=== PATIENT | female | born 1935 | race Caucasian/White ===

== ENCOUNTER 2017-10-30 21:36 | Observation (INO) | payer MEDICARE, BC ==
[~2017-10-30] VITALS: Ht 167.6 cm; Wt 93.9 kg
[2017-10-30 22:01] LABS: BASOPHILS % 0.6 % (0.0-1.0); EOSINOPHILS # (AUTO) 0.2 (0.0-0.4); EOSINOPHILS % 4.6 % (0.0-6.0); HEMATOCRIT 33.8 % (34.2-44.1); HEMOGLOBIN 11.3 g/dL (12.0-16.0); LYMPHOCYTES # (AUTO) 1.9 (1.0-3.2); LYMPHOCYTES % 36.5 % (18.0-39.1); MEAN CORPUSCULAR HEMOGLOBIN 31.4 pg (28-32); MEAN CORPUSCULAR HGB CONC 33.4 g/dL (31-35); MEAN CORPUSCULAR VOLUME 93.9 fL (81-99); MONOCYTES # (AUTO) 0.4 (0.2-0.8); MONOCYTES % 8.4 % (4.4-11.3); NEUTROPHILS # (AUTO) 2.6 (2.1-6.9); NEUTROPHILS % 49.5 % (38.7-80.0); PLATELET COUNT 236 x10e3/uL (140-360); RED CELL DISTRIBUTION WIDTH 13.2 % (11.7-14.4)
[2017-10-30 22:10] LABS: INR 1.04; PARTIAL THROMBOPLASTIN TIME 33.2 seconds (23.8-35.5); PROTHROMBIN TIME 12.8 seconds (11.9-14.5)
[2017-10-30 22:21] LABS: ALANINE AMINOTRANSFERASE 32 IU/L (0-55); ALBUMIN 4.2 g/dL (3.5-5.0); ALBUMIN/GLOBULIN RATIO 1.3 (0.8-2.0); ALKALINE PHOSPHATASE 77 IU/L (40-150); BLOOD UREA NITROGEN 28 mg/dL (7-26); BUN/CREATININE RATIO 19 (6-25); CALCIUM 10.5 mg/dL (8.4-10.2); CARBON DIOXIDE 26 mmol/L (22-29); CREATINE KINASE 85 IU/L (29-168); EST GLOMERULAR FILTRATION RATE 33 ML/MIN (60-); GLUCOSE 126 mg/dL (74-118)
[2017-10-30 23:17] LABS: POTASSIUM 3.9 mmol/L (3.5-5.1); SODIUM 142 mmol/L (136-145)
[2017-10-30 23:18] LABS: ANION GAP 15.9 mmol/L (8-16); CHLORIDE 104 mmol/L (98-107)
--- NOTE | 2017-10-30 23:40 | Diagnostic Imaging Report ---
History:TIA Comparison studies:None Technique: Axial images were obtained from the skull base to the vertex. Coronal and sagittal images reconstructed from the axial data. Intravenous contrast: None Dose modulation, iterative reconstruction, and/or weight based adjustment of the mA/kV was utilized to reduce the radiation dose to as low as reasonably achievable. Findings: Scalp/skull: No abnormalities. Extra-axial spaces: No masses. No fluid collections. Brain sulci: Mildly prominent. Ventricles: Mild compensatory dilatation. No hydrocephalus. Parenchyma: Small hypodensities in the supratentorial white matter are small vessel ischemic changes. No masses, hemorrhage, acute or chronic cortical vascular insults. Sellar/suprasellar region: No abnormalities. Craniocervical junction: Patent foramen magnum. No Chiari one malformation. Incidental findings: Atherosclerotic calcifications in the carotid siphons . Impression: No acute abnormalities. Chronic findings: 1. Mild generalized volume loss. 2. Mild supratentorial white matter small vessel ischemic changes. Signed by: DR David Bray M.D. on 10/30/2017 10:52 PM
--- NOTE | 2017-10-30 23:41 | Diagnostic Imaging Report ---
CHEST SINGLE (PORTABLE), 10/30/2017 9:37 PM Technique: CHEST SINGLE (PORTABLE) Comparison: None available. Clinical history: TIA Findings: Prominent cardiomediastinal silhouette likely related to portable technique. No consolidation or edema. No effusion or pneumothorax. Calcified right upper lung granulomas. Impression: 1. Lines/Tubes: None 2. No acute abnormality. Signed by: Dr Alicia Espinal MD on 10/30/2017 11:11 PM
[2017-10-30] MEDS ORDERED: ASPIRIN 81 MG CHEW TAB PO STA (23:50)
[2017-10-31] VITALS (9 sets, daily range): BP systolic 129–186; BP diastolic 60–77
[2017-10-31] MEDS ORDERED: SODIUM CHLORIDE FLUSH 10 ML SYR INJ PRN
[2017-10-31] MEDS ORDERED: ONDANSETRON HCL INJ 2 MG/ML VIAL IV PRN
[2017-10-31] MEDS ORDERED: ASPIRIN 81 MG CHEW TAB PO ONE
[2017-10-31] MEDS ORDERED: LOSARTAN POTASS50 MG PO (00:35)
[2017-10-31] MEDS ORDERED: SIMVASTATIN40 MG PO (00:35)
[2017-10-31] MEDS ORDERED: SYNTHROID75 MCG PO (00:35)
[2017-10-31] MEDS ORDERED: CARVEDILOL3.125 MG PO (00:35)
[2017-10-31] MEDS ORDERED: ACETAMINOPHEN 325 MG TAB PO PRN (00:45)
[2017-10-31] MEDS ORDERED: DIAZEPAM5 MG PO (01:22)
[2017-10-31] MEDS ORDERED: DIAZEPAM 5 MG TAB PO PRN (02:00)
[2017-10-31 02:37] LABS: BILIRUBIN,URINE NEGATIVE (NEGATIVE); CLARITY,URINE CLEAR (CLEAR); COLOR,URINE YELLOW (YELLOW); KETONES,URINE NEGATIVE (NEGATIVE); LEUKOCYTE ESTERASE ,URINE 1+ (NEGATIVE); NITRITE,URINE NEGATIVE (NEGATIVE); PROTEIN,URINE DIPSTICK NEGATIVE (NEGATIVE); URINE UROBILINOGEN 0.2 mg/dL (0.2 - 1)
[2017-10-31 02:45] LABS: BACTERIA,URINE RARE /HPF; EPITHELIAL CELLS,URINE RARE /LPF; RBC,URINE 0-5 /HPF (0-5); TRANSITIONAL EPI CELLS,URINE FEW
[2017-10-31 08:16] LABS: CREATINE KINASE 70 IU/L (29-168)
[2017-10-31] MEDS ORDERED: SIMVASTATIN 40 MG TAB PO SCH ×2 (09:00→21:00)
[2017-10-31] MEDS ORDERED: NON-FORMULARY MEDICATION (Losartan Potassium 50 MG) PO SCH (09:00)
[2017-10-31] MEDS ORDERED: LOSARTAN POTASSIUM 25 MG TAB PO SCH ×2 (09:00→21:00)
[2017-10-31] MEDS ORDERED: CARVEDILOL 3.125 MG TAB PO SCH (09:00)
[2017-10-31] MEDS ORDERED: LEVOTHYROXINE SODIUM 75 MCG TAB PO SCH (09:00)
[2017-10-31] MEDS: ASPIRIN 81 MG ENTERIC COATED PO SCH (11:30)
--- NOTE | 2017-10-31 12:23 | History and Physical ---
Ms. Glass is a charming, 82-year-old woman who presented to the emergency room overnight with a complaint of inability to speak. HISTORY OF PRESENT ILLNESS: The patient reports she lives with her [id number] and that evening while visiting found that, wanting to talk, she could only make mumbling noises for about 15 minutes and then the ability to speak returned. The patient denies any previous similar episodes. Denies any chest pain or palpitations. PAST MEDICAL HISTORY: Significant for hypertension and hyperlipidemia. She has only been in the hospital once for a hysterectomy 61 years ago. MEDICATIONS: She uses a medical regimen of: 1. Losartan 50 mg daily. 2. Carvedilol 3.125 twice a day. 3. Levothyroxine 75 mcg daily. 4. Simvastatin 40 mg daily. 5. Diazepam 5 mg at bedtime. 6. Iron sulfate. FAMILY HISTORY: She reports that her mother, Regine Arellano, lived to be 96 years of age. PERSONAL AND SOCIAL HISTORY: She does not smoke or drink and lives with family. REVIEW OF SYSTEMS: Cardiac: She has had no chest pain or palpitations. PHYSICAL EXAMINATION GENERAL: Examination at this time shows a pleasant, obese woman who is alert, responsive and fluent. VITAL SIGNS: Blood pressure 120/60. Afebrile. Pulse 66. HEENT: Unremarkable. NECK: No jugular venous distention. No bruits. THORAX: Heart sounds S1, S2 are equal. No murmurs. Lungs are clear. ABDOMEN: Protuberant. Normal bowel sounds. EXTREMITIES: No cyanosis, clubbing or edema. LABS: CAT scan of head shows some volume loss but no focal defects. BUN 28, creatinine 1.5. Glucose 126. White count 5.3, hemoglobin 11.3. Coags are normal. Chest x-ray is unremarkable. ASSESSMENT 1. Transient ischemic attack, resolved. 2. Hypertension. 3. Hyperlipidemia. 4. Hyperglycemia. PLAN: Will monitor and add aspirin to her regimen. Await MRI of the head. Check echo and carotid Doppler scan. Further management based on clinical course. Job#: [id number] cc:Prabhu SMALL M.D.
--- NOTE | 2017-10-31 14:28 | Diagnostic Imaging Report ---
Examination: MRI BRAIN WITHOUT CONTRAST History: Loss of speech and body movement. Weakness. Impaired speech for 15 to 20 minutes. Comparison studies: Head CT performed October 30, 2017. Technique: Sagittal T2; axial DWI, FLAIR, GRE or SWI, T1, Coronal FLAIR. Intravenous contrast: None Findings: Scalp: No abnormal signal. No masses. Bone marrow: Normal in signal intensity. Brain volume: Moderate volume loss. Ventricles: Ex vacuo dilatation. No hydrocephalus. Extra-axial spaces: No abnormalities. Parenchyma: There are scattered punctate areas of T2/FLAIR hyperintensity in the periventricular and subcortical white matter, nonspecific. No masses, hemorrhage, acute or chronic vascular insults. Suprasellar and sellar region: No abnormalities. Craniocervical junction: No abnormalities. The foramen magnum is patent. No Chiari malformations. Vessels: Normal flow-voids in the arteries and sinuses. Additional findings:None. IMPRESSION: 1. No acute intracranial abnormalities, specifically, no acute infarct. 2. Minimal chronic microvascular ischemic change. 3. Moderate volume loss. Signed by: Dr. Veronica Renee M.D. on 10/31/2017 2:25 PM
--- NOTE | 2017-10-31 14:31 | Diagnostic Imaging Report ---
Examination: MRA NECK AND HEAD WITHOUT CONTRAST History: Impaired speech. Weakness. Comparison studies: None Technique: 2-D and 3-D [id number] MR angiograms of the cervical and intracranial circulations were obtained. MIP images of the arteries were isolated into the right and left cervical circulations and anterior and posterior intracranial circulations, 180 degree projections. Sagittal and coronal MPR images, and axial source images are available for evaluation. Degree of stenosis at the carotid bulbs, if present, will be calculated using NASCET criteria where the smallest diameter at the location of stenosis is compared to the diameter of the more distal non-diseased vessel lumen. Findings: Cervical MRA Limited study due to motion artifact. Aortic arch: Normal 3 great vessel origin. Patent. Internal carotid arteries: No flow abnormalities at the origins of the common carotid arteries, the cervical carotid bifurcations or in the cervical segments. Vertebral arteries: No flow abnormalities at the origins of the vertebral arteries or through its cervical segments (V1-V3). Intracranial MRA: Internal carotid arteries: Patent. Anterior cerebral arteries: Patent A1 and A2 segments. Middle cerebral arteries: Patent M1 and M2 segments. Vertebrobasilar circulation: Patent. Posterior cerebral arteries: Patent P1 and P2 segments. Anatomical variants: Anterior communicating arteries: Patent. Posterior communicating arteries: Patent bilaterally. Vertebral arteries:Codominant. IMPRESSION: No cervical or intracranial arterial high-grade stenosis or occlusion or vascular malformation. Signed by: Dr. Veronica Renee M.D. on 10/31/2017 2:28 PM
[2017-10-31 16:38] LABS: CREATINE KINASE 65 IU/L (29-168)
--- NOTE | 2017-10-31 18:57 | Consultation ---
DATE OF CONSULTATION: October 31, 2017 NEUROLOGY CONSULT NOTE HISTORY OF PRESENT ILLNESS: Ms. Glass is an 82-year-old terxr-yanz-lsctaqer woman with past medical history significant for hypertension and hyperlipidemia, admitted to [facility] on October 31, 2017 for a transient ischemic attack. At approximately 2000 in the evening on the day prior to admission, the patient was sitting in her bedroom watching TV when she experienced the abrupt onset of dysarthria and expressive aphasia. Ms. Glass reports knowing what she wanted to say, but being unable to say the words. Her fzdhaysb-bl-vsa who witnessed the speech disturbance told the patient she sounded as though she was mumbling gibberish. In addition to the dysarthria and expressive aphasia, the patient endorses mild confusion as well. Ms. Glass states she knew who she was and where she was. However, she was confused as to what was happening to her. The patient does not report a visual field cut or other disturbance, facial droop, hemiparesis, hemihypesthesia, poor balance or gait impairment, or dizziness. The above symptoms lasted for a few minutes, then spontaneously resolved. Ms. Glass has not experienced similar symptoms previously. She does not report a headache associated with the above symptoms. Patient was awake and aware during the event described above, but was unable to communicate. The patient's xphigage-db-men contacted emergency medical, services and the patient was transported to the Emergency Center at [facility] via ambulance for further evaluation of her symptoms. Upon arrival in the Emergency Center, the patient was afebrile with a blood pressure 158/68 mmHg and pulse of 69 beats per minute. Her neurological examination was documented as being nonfocal. Ms. Glass received an NIH stroke score of 0. A CT of the brain without contrast was ordered while the patient was in the Emergency Center. There is no evidence of recent large territorial ischemia or hemorrhage on these images. The patient was admitted to [facility] under observation status for further evaluation and treatment of her symptoms. REVIEW OF SYSTEMS: Chest pain, confusion, dysarthria, expressive aphasia, mild impairment of balance and gait (chronic). Otherwise the 12 point review of systems is negative. PAST MEDICAL HISTORY: Hypertension, hyperlipidemia, thyroid disease, bilateral cataracts. FAMILY MEDICAL HISTORY: The patient's paternal and maternal grandparents are . Their medical histories are unknown. The patient's father is from an intracerebral hemorrhage. He had diabetes mellitus as well. The patient's mother is . She had medical history of heart disease. (possibly infectious in origin). Ms. Glass had one brother who is . He had diabetes mellitus and coronary artery disease with a myocardial infarction. The patient's only child, a son, is from ALS. PAST SURGICAL HISTORY: Partial hysterectomy, appendectomy. PAST HOSPITALIZATIONS: Surgeries/procedures as listed, childbirth times 1. SOCIAL HISTORY: Ms. Glass is . She is retired. There is no reported current or prior tobacco, alcohol, or recreational drug use. HOME MEDICATIONS: Coreg 3.25 mg by mouth twice daily, diazepam 5 mg by mouth at bedtime as needed for insomnia, levothyroxine 75 mcg by mouth daily, losartan 50 mg by mouth daily, simvastatin 40 mg by mouth at bedtime daily. ALLERGIES: NO KNOWN DRUG ALLERGIES. NO KNOWN FOOD ALLERGIES. NO KNOWN ALLERGIES TO LATEX. NO KNOWN ALLERGIES TO IODINE OR OTHER CONTRAST MATERIALS. PHYSICAL EXAMINATION: VITAL SIGNS: Height 66 inches, weight 200 pounds, BMI 32.3 kg per meter squared. Blood pressure 170/71 mmHg. Pulse 75 beats per minute. Respiratory rate 20 breaths per minute. Oxygen saturation 96% on 2 liters by nasal cannula. GENERAL: The patient is awake and alert. Does not appear distressed. Obese. HEENT: Normocephalic, atraumatic. Pupils are equal, round and reactive to light. Moist mucous membranes. NECK: Supple. No appreciable thyromegaly. No appreciable carotid bruits. CARDIOVASCULAR: S1 and S2. Regular rate and rhythm. No murmurs, rubs or gallops. RESPIRATORY: Clear to auscultation bilaterally. No wheezes, rhonchi or rales. EXTREMITIES: The skin is warm and dry. No clubbing, cyanosis or edema. The posterior tibial and dorsalis pedis pulses are 1+ and symmetric. SKIN: No rashes or lesions. NEUROLOGIC: Memory/attention: The patient is awake and alert. Oriented to person, place, time, and situation. CRANIAL NERVES: Cranial nerve I: Not tested. Cranial nerves II, III, IV, : Pupils are equal and round, react briskly to light (from 4 mm to 2 mm). Extraocular movements intact. No nystagmus. Cranial nerve V: Sensation to light touch and pinprick is intact in the bilateral V1 through V3 distributions. Strength of the temporalis and masseter muscles is within normal limits. Cranial nerve VII: The face is symmetric, as are all facial movements. Strength is within normal limits. Cranial nerve VIII: Hearing is intact to finger rub bilaterally. Cranial nerve IX and X: The soft palate elevates equally and symmetrically. Cranial nerve XI: Normal strength of the bilateral sternocleidomastoid and trapezius muscles. Cranial nerve XII: The tongue protrudes midline and moves symmetrically from side to side. STRENGTH: Bulk is normal, and strength is 5/5 in the bilateral deltoids, biceps, triceps, wrist flexors and extensors, finger flexors and extensors, intrinsic hand muscles, hip flexors, knee flexors and extensors, ankle dorsiflexion and plantar flexion, and intrinsic foot muscles. Tone is normal. DTRs: Deep tendon reflexes are 2+ and symmetric at the triceps, biceps, brachioradialis, and patellas. Deep tendon reflexes are absent and symmetric at the Achilles. Plantar responses are flexor bilaterally. SENSATION: Intact to light touch and pinprick in both arms and both legs. CEREBELLAR: Sntnew-uvua-magkol and heel-weeks movements are intact without dysmetria or other impairment. GAIT: Deferred. SPEECH: Spontaneous speech is normal without appreciable dysarthria or aphasia. Repetition is intact. INVOLUNTARY MOVEMENTS: None. PRONATOR DRIFT: None. LABORATORY DATA: The complete metabolic panel is significant for elevated BUN of 28, elevated creatinine 1.50, and low estimated GFR of 33. The serum glucose is mildly elevated at 126. The calcium is mildly elevated at 10.5. Liver function tests are within normal limits. Cardiac enzymes are negative times 3. The CBC with differential and platelets reveals a white blood cell count of 5.23 with a normal differential. The hemoglobin and hematocrit are 11.3 and 33.8, respectively. The platelet count is 236,000. The PT, INR, and PTT are within normal limits. A urinalysis is significant for 1+ leukocyte esterase, 11 to 20 white blood cells, and few transitional epithelial cells. DIAGNOSTIC STUDIES: EKG 10/30/2017: Normal sinus rhythm at 69 beats per minute with sinus arrhythmia. Chest x-ray 10/30/2017: No acute abnormality. CT of the brain without contrast 10/30/2017: On my review, there is no evidence of recent large territorial ischemia, hemorrhage, mass, or mass effect. There is diffuse cerebral atrophy, appropriate for age. There are findings compatible with mild to moderate chronic small vessel ischemic disease. MRI of the brain without contrast 10/31/2017: On my review, there is no evidence of recent large territorial ischemia, hemorrhage, mass, or mass effect. There is diffuse cerebral atrophy, appropriate for age. There are scattered T2/flair hyperintense foci of the deep white matter compatible with mild chronic small vessel ischemic disease. MRA of the brain and neck without contrast , there is no evidence of hemodynamically significant stenosis in either the intra- or extracranial vessels. ASSESSMENT AND PLAN: Ms. Glass is an 82-year-old mpmvo-zfqz-pyjroncz woman with past medical history significant for hypertension and hyperlipidemia admitted to [facility] on October 31, 2017 with a transient ischemic attack in the left anterior middle cerebral artery distribution with cortical involvement. At present, her neurological examination is nonfocal. Her laboratory data and other diagnostic studies have been reviewed and are documented above. RECOMMENDATIONS: 1. A lipid panel and hemoglobin A1c have been ordered and are pending. 2. An echocardiogram has been ordered and is pending. 3. Ms. Glass will be prescribed aspirin 81 mg by mouth daily for stroke prophylaxis. 4. Due to the absence of hemodynamically significant stenosis in neither the intra- or extracranial blood vessels, patient's blood pressure may be normalized. Her goal blood pressure is less uesj152/70 mmHg. Continue home antihypertensive medications. Monitor vital signs per unit protocol and adjust medications accordingly. 5. Follow up the results of the lipid panel. Patient's goal total cholesterol is less than 200 with an LDL of less than 70. Continue patient's home medication of simvastatin 40 mg by mouth at bedtime daily. Adjust the medication accordingly once the results of the lipid panel are reviewed. 6. Follow up the results of the hemoglobin A1c. Patient's goal hemoglobin A1c is less than 7.0. Tight glucose control is recommended while the patient is in the hospital. 7. As indicated above, there are no deficits on the patient's neurological examination. Therefore, speech and physical therapy evaluations will be deferred. 8. GI prophylaxis with Pepcid 20 mg by mouth twice daily before meals. DVT prophylaxis with heparin 5000 units subcutaneously q.12 hours. 9. Defer treatment of the remaining medical comorbidities to the primary and other services following the patient. Thank you for this consultation. I will continue to follow the patient while she remains in the hospital. Time spent: 70 minutes. Job#: [id number]
[2017-10-31] MEDS: CARVEDILOL 3.125 MG TAB PO SCH (20:51)
[2017-10-31] MEDS: HEPARIN SOD (PORCINE) 5,000 UNIT/ML VIAL SC SCH (20:53)
[2017-11-01] VITALS: BP 136/63
[2017-11-01 04:00] VITALS: BP 131/73
[2017-11-01 05:12] LABS: BASOPHILS % 0.5 % (0.0-1.0); EOSINOPHILS # (AUTO) 0.2 (0.0-0.4); EOSINOPHILS % 3.4 % (0.0-6.0); HEMATOCRIT 32.9 % (34.2-44.1); LYMPHOCYTES # (AUTO) 1.4 (1.0-3.2); LYMPHOCYTES % 32.5 % (18.0-39.1); MEAN CORPUSCULAR HEMOGLOBIN 31.8 pg (28-32); MEAN CORPUSCULAR HGB CONC 33.4 g/dL (31-35); MEAN CORPUSCULAR VOLUME 95.1 fL (81-99); MONOCYTES # (AUTO) 0.4 (0.2-0.8); MONOCYTES % 7.9 % (4.4-11.3); NEUTROPHILS # (AUTO) 2.5 (2.1-6.9); NEUTROPHILS % 55.5 % (38.7-80.0); PLATELET COUNT 209 x10e3/uL (140-360); RED BLOOD COUNT 3.46 x10e6/uL (3.6-5.1); RED CELL DISTRIBUTION WIDTH 13.1 % (11.7-14.4)
[2017-11-01 05:37] LABS: ALBUMIN 3.7 g/dL (3.5-5.0); ALBUMIN/GLOBULIN RATIO 1.2 (0.8-2.0); ANION GAP 14.7 mmol/L (8-16); CALCIUM 9.8 mg/dL (8.4-10.2); CREATININE, SERUM 1.38 mg/dL (0.57-1.11); POTASSIUM 4.7 mmol/L (3.5-5.1)
[2017-11-01] MEDS ORDERED: LEVOTHYROXINE SODIUM 75 MCG TAB PO SCH (06:00)
[2017-11-01 06:08] LABS: CHOL/HDL RATIO 4.5 (3.0-3.6)
[2017-11-01 06:23] LABS: THYROID STIMULATING HORMONE 1.961 uIU/mL (0.350-4.940)
[2017-11-01] MEDS ORDERED: FAMOTIDINE 20 MG TAB PO SCH (07:30)
[2017-11-01 08:23] VITALS: BP 159/70
[2017-11-01 09:26] VITALS: BP 159/70
[2017-11-01] MEDS: HEPARIN SOD (PORCINE) 5,000 UNIT/ML VIAL SC SCH (09:47)
[2017-11-01] MEDS: ASPIRIN 81 MG ENTERIC COATED PO SCH (09:47)
[2017-11-01] MEDS: CARVEDILOL 3.125 MG TAB PO SCH (09:47)
[2017-11-01 12:22] VITALS: BP 128/76
[2017-11-01 16:19] VITALS: BP 143/79
--- NOTE | 2017-11-02 09:34 | Discharge Summary ---
Ms. Glass is a [facility] 82-year-old woman known to me from the past with my care of her other family members, particularly her mother. CHIEF COMPLAINT: She presented to the emergency room on October 31, 2017, with the complaint that she had earlier had a episode of inability to speak, which resolved after about 15 minutes. Meherrin to be a TIA. HOSPITAL COURSE: Initial assessment suggested TIA. CT scan of the head was performed, which was relatively unremarkable. She was seen in consultation by Dr. Guaman. An MRI and MRA was ordered, which showed no evidence of stroke and no high-grade stenoses in the vessels. Echocardiogram was relatively unremarkable. She remained neurologically stable. By the afternoon of November 01, 2017, she was eager to be discharged to home. She was given aspirin to add to her regular regimen. She was discharged with her same home medications with the addition of aspirin. Her cholesterol was 202, triglycerides 363. She will follow up in my office for further management of TIA and hypertension. She did have hyperglycemia as well. DISCHARGE DIAGNOSES 1. Transient ischemic attack. 2. Hypertension. 3. Hyperlipidemia. 4. Hyperglycemia. SANDRITA WALL MD Job#: [id number] RI cc: ZOYA GUAMAN MD
== END 2017-11-01 17:57 | disposition home or self-care (01) ==
LOC: ER 21:36 → ERHOLD 10-31 00:41 → MED/SURG 10-31 01:09 → IMCU 10-31 12:46
PROVIDERS: ADMIT Internal Medicine Cardiovascular Disease; ATTEND Internal Medicine Cardiovascular Disease
DX: G45.9 Transient cerebral ischemic attack, unspecified (principal); I10 Essential (primary) hypertension; E78.5 Hyperlipidemia, unspecified; R73.9 Hyperglycemia, unspecified
CPT/HCPCS: 36415 ×2; 70450; 70544; 70547; 70551; 71045; 80053 ×2; 80061; 81001; 82550 ×2; 82553 ×2; 82948; 83036; 84436; 84443; 84479; 84484 ×2; 85025 ×2; 85610; 85730; 93005; 93306; 97139; 99284; G0378 ×2; J1644 ×2

== ENCOUNTER 2023-12-04 16:39 | Inpatient (IN) | payer MEDICARE, BC ==
[~2023-12-04] VITALS: Ht 165.1 cm; Wt 93.9 kg
[~2023-12-04 16:39] MED LIST: CARVEDILOL3.125 MG PO; CEPHALEXIN500 MG PO; DIAZEPAM5 MG PO; LOSARTAN POTASS50 MG PO; SIMVASTATIN40 MG PO; SYNTHROID75 MCG PO
[2023-12-04] MEDS: ACETAMINOPHEN 325 MG TAB PO ONE (17:15)
[2023-12-04 17:26] LABS: BASOPHILS % 0.2 % (0.0-1.0); EOSINOPHILS # (AUTO) 0.2 (0.0-0.4); EOSINOPHILS % 1.7 % (0.0-6.0); HEMATOCRIT 34.7 % (34.2-44.1); HEMOGLOBIN 11.4 g/dL (12.0-16.0); LYMPHOCYTES # (AUTO) 0.7 (1.0-3.2); LYMPHOCYTES % 5.2 % (18.0-39.1); MEAN CORPUSCULAR HEMOGLOBIN 31.2 pg (28-32); MEAN CORPUSCULAR HGB CONC 32.9 g/dL (31-35); MEAN CORPUSCULAR VOLUME 95.1 fL (81-99); MONOCYTES # (AUTO) 0.6 (0.2-0.8); MONOCYTES % 4.2 % (4.4-11.3); PLATELET COUNT 256 x10e3/uL (140-360); RED BLOOD COUNT 3.65 x10e6/uL (3.6-5.1); RED CELL DISTRIBUTION WIDTH 13.8 % (11.7-14.4); WHITE BLOOD COUNT 13.81 x10e3/uL (4.8-10.8)
[2023-12-04 17:37] LABS: INR 0.94
[2023-12-04 17:39] LABS: PARTIAL THROMBOPLASTIN TIME 30.6 seconds (23.8-35.5)
[2023-12-04 17:44] LABS: ALBUMIN 4.2 g/dL (3.5-5.0); ALBUMIN/GLOBULIN RATIO 1.3 (0.8-2.0); BILIRUBIN,TOTAL 0.5 mg/dL (0.2-1.2); CALCIUM 10.6 mg/dL (8.4-10.2); CREATININE, SERUM 1.53 mg/dL (0.57-1.11); TOTAL PROTEIN 7.4 g/dL (6.5-8.1)
[2023-12-04 17:58] LABS: BILIRUBIN,URINE NEGATIVE (NEGATIVE); CLARITY,URINE SL CLOUDY (CLEAR); COLOR,URINE YELLOW (YELLOW); GLUCOSE, URINE NEGATIVE (NEGATIVE); KETONES,URINE NEGATIVE (NEGATIVE); LEUKOCYTE ESTERASE ,URINE NEGATIVE (NEGATIVE); NITRITE,URINE NEGATIVE (NEGATIVE); PH,URINE 5.5 (5 - 7); PROTEIN,URINE DIPSTICK 2+ (NEGATIVE); URINE UROBILINOGEN 0.2 mg/dL (0.2 - 1)
[2023-12-04 18:08] LABS: BACTERIA,URINE FEW /HPF; EPITHELIAL CELLS,URINE MODERATE /LPF; RBC,URINE 0-5 /HPF (0-5)
[2023-12-04 18:09] LABS: MUCUS,URINE FEW (RARE)
[2023-12-04] MEDS ORDERED: ONDANSETRON HCL INJ 2MG/ML 2ML 2 MG/ML VIAL IV PRN (18:15)
[2023-12-04] MEDS: SODIUM CHLORIDE 0.9% 1000ML 1,000 ML IV ONE (18:21)
[2023-12-04 18:58] VITALS: PULSE 77; RESP 21; TEMP 99.7
[2023-12-04] MEDS: SODIUM CHLORIDE 0.9% 1000ML 1,000 ML IV SCH (19:09)
[2023-12-04] MEDS ORDERED: ACETAMINOPHEN 325 MG TAB PO PRN (20:15)
[2023-12-04] MEDS: CARVEDILOL 3.125 MG TAB PO ONE (20:32)
[2023-12-04 21:00] VITALS: BP 150/59; PULSE 69; RESP 18; TEMP 98.2; O2SAT 98
[2023-12-04] MEDS ORDERED: OMEGA-3 ACID ETH1 GM PO (23:17)
[2023-12-04] MEDS ORDERED: LOSARTAN POTASS25 MG PO (23:17)
[2023-12-04] MEDS ORDERED: AMLODIPINE BESYL5 MG PO (23:17)
[2023-12-05] VITALS (9 sets, daily range): BP systolic 133–155; BP diastolic 52–58; PULSE 55–73; RESP 17–20; TEMP 97.7–99.3; O2SAT 94–100
[2023-12-05 05:44] LABS: BASOPHILS % 0.1 % (0.0-1.0); EOSINOPHILS # (AUTO) 0.4 (0.0-0.4); HEMATOCRIT 33.5 % (34.2-44.1); HEMOGLOBIN 10.6 g/dL (12.0-16.0); LYMPHOCYTES # (AUTO) 1.2 (1.0-3.2); LYMPHOCYTES % 11.9 % (18.0-39.1); MEAN CORPUSCULAR HGB CONC 31.6 g/dL (31-35); MONOCYTES # (AUTO) 0.4 (0.2-0.8); MONOCYTES % 3.9 % (4.4-11.3); NEUTROPHILS # (AUTO) 8.1 (2.1-6.9); NEUTROPHILS % 78.5 % (38.7-80.0); PLATELET COUNT 213 x10e3/uL (140-360); RED BLOOD COUNT 3.42 x10e6/uL (3.6-5.1); RED CELL DISTRIBUTION WIDTH 13.9 % (11.7-14.4); WHITE BLOOD COUNT 10.25 x10e3/uL (4.8-10.8)
[2023-12-05 06:21] LABS: ALBUMIN 3.4 g/dL (3.5-5.0); ALBUMIN/GLOBULIN RATIO 1.1 (0.8-2.0); BILIRUBIN,TOTAL 0.4 mg/dL (0.2-1.2); CALCIUM 9.1 mg/dL (8.4-10.2); CREATININE, SERUM 1.36 mg/dL (0.57-1.11); TOTAL PROTEIN 6.4 g/dL (6.5-8.1)
[2023-12-05] MEDS: CARVEDILOL 3.125 MG TAB PO SCH (08:38)
[2023-12-05] MEDS ORDERED: DIAZEPAM 5 MG TAB PO PRN (10:00)
[2023-12-05] MEDS: OMEGA ACID ETHYL ESTERS PO SCH (12:48)
[2023-12-05] MEDS: LEVOTHYROXINE SODIUM 75 MCG TAB PO SCH (12:55)
[2023-12-05] MEDS: AMLODIPINE BESYLATE 5 MG TAB PO SCH (12:55)
[2023-12-05] MEDS: LOSARTAN POTASSIUM 25 MG TAB PO SCH (12:55)
[2023-12-05] MEDS ORDERED: POLYETHYLENE GLYCOL 3350 17 GM PACK PO PRN (14:30)
[2023-12-05] MEDS: DOCUSATE SODIUM 100 MG CAP PO SCH (17:00)
[2023-12-05] MEDS: SIMVASTATIN 40 MG TAB PO SCH (20:47)
[2023-12-06] VITALS (10 sets, daily range): BP systolic 137–182; BP diastolic 51–99; PULSE 64–71; RESP 16–18; TEMP 97.7–98.4; O2SAT 95–100
[2023-12-06 05:45] LABS: BASOPHILS % 0.4 % (0.0-1.0); EOSINOPHILS # (AUTO) 0.5 (0.0-0.4); EOSINOPHILS % 6.5 % (0.0-6.0); HEMATOCRIT 29.9 % (34.2-44.1); HEMOGLOBIN 9.7 g/dL (12.0-16.0); LYMPHOCYTES # (AUTO) 1.8 (1.0-3.2); LYMPHOCYTES % 23.9 % (18.0-39.1); MEAN CORPUSCULAR HEMOGLOBIN 31.2 pg (28-32); MEAN CORPUSCULAR HGB CONC 32.4 g/dL (31-35); MEAN CORPUSCULAR VOLUME 96.1 fL (81-99); MONOCYTES # (AUTO) 0.4 (0.2-0.8); MONOCYTES % 5.7 % (4.4-11.3); NEUTROPHILS # (AUTO) 4.6 (2.1-6.9); NEUTROPHILS % 61.6 % (38.7-80.0); PLATELET COUNT 216 x10e3/uL (140-360); RED BLOOD COUNT 3.11 x10e6/uL (3.6-5.1); RED CELL DISTRIBUTION WIDTH 14.1 % (11.7-14.4); WHITE BLOOD COUNT 7.53 x10e3/uL (4.8-10.8)
[2023-12-06 06:41] LABS: ALBUMIN 3.4 g/dL (3.5-5.0); ALBUMIN/GLOBULIN RATIO 1.1 (0.8-2.0); ANION GAP 15.2 mmol/L (8-16); BILIRUBIN,TOTAL 0.3 mg/dL (0.2-1.2); CALCIUM 9.3 mg/dL (8.4-10.2); CHOL/HDL RATIO 3.5 (3.0-3.6); CREATININE, SERUM 1.51 mg/dL (0.57-1.11); MAGNESIUM 1.7 MG/DL (1.3-2.1); PHOSPHORUS 2.9 MG/DL (2.3-4.7); POTASSIUM 4.2 mmol/L (3.5-5.1); TOTAL PROTEIN 6.5 g/dL (6.5-8.1)
[2023-12-06 07:09] LABS: FREE T4 (FREE THYROXINE) 0.93 ng/dL (0.8-1.8); THYROID STIMULATING HORMONE 2.508 uIU/mL (0.350-4.940)
[2023-12-06] MEDS: FAMOTIDINE 20 MG TAB PO SCH (08:30)
[2023-12-06] MEDS: HYDRALAZINE HCL 20 MG/ML VIAL IV PRN (08:34)
[2023-12-07] VITALS: BP 152/60; PULSE 76; RESP 18; TEMP 98.1; O2SAT 98
[2023-12-07 04:00] VITALS: BP 145/61; PULSE 64; RESP 18; TEMP 97.8; O2SAT 97
[2023-12-07 06:22] VITALS: PULSE 75; RESP 20; O2SAT 95
[2023-12-07 08:00] VITALS: BP 166/68; PULSE 75; RESP 20; TEMP 97.8; O2SAT 95
[2023-12-07 09:03] VITALS: BP 166/68; PULSE 64; RESP 20; TEMP 98.1; O2SAT 98
[2023-12-07] MEDS: AMLODIPINE BESYLATE 5 MG TAB PO SCH (09:12)
[2023-12-07 09:14] VITALS: BP 166/68; PULSE 64
[2023-12-07] MEDS ORDERED: NORVASC5 MG PO (09:43)
[2023-12-07] MEDS ORDERED: ACETAMINOPHEN325 M1 PO (09:43)
== END 2023-12-07 11:05 | disposition home or self-care (01) | DRG 872 ==
LOC: ER 17:37 → ERHOLD 18:16 → MED/SURG2 20:24 → OBSVTOIN 12-06 08:47
PROVIDERS: ADMIT Internal Medicine; ATTEND Internal Medicine
PROC: 3E0333Z Introduction of Anti-inflammatory into Peripheral Vein, Percutaneous Approach (ICD-10-PCS; principal; 2023-12-04)
DX: A41.9 Sepsis, unspecified organism (principal); E87.20 Acidosis, unspecified; E11.22 Type 2 diabetes mellitus with diabetic chronic kidney disease; I12.9 Hypertensive chronic kidney disease with stage 1 through stage 4 chronic kidney disease, or unspecified chronic kidney disease; R65.20 Severe sepsis without septic shock; E03.9 Hypothyroidism, unspecified; N18.9 Chronic kidney disease, unspecified; Z66 Do not resuscitate; Z11.52 Encounter for screening for COVID-19; M54.9 Dorsalgia, unspecified; R26.2 Difficulty in walking, not elsewhere classified; Z79.890 Hormone replacement therapy; Z90.710 Acquired absence of both cervix and uterus; Z87.440 Personal history of urinary (tract) infections; Z82.49 Family history of ischemic heart disease and other diseases of the circulatory system
CPT/HCPCS: 36415; 71045; 80053; 80061; 81001; 83036; 83605; 83735; 84100; 84439; 84443; 85025; 85610; 85730; 87040; 87086; 87400; 87420; 94799; 96361; 99284; G0378; J0360; J0696; J7030; U0002